=== PATIENT | male | born 1975 | race Caucasian/White ===

== ENCOUNTER 2016-12-14 20:00 | Emergency (ER) | payer BC ==
[~2016-12-14 20:00] MED LIST: ACET500CAP PO; CARDCD120 PO; ELIQUIS 5 MG TAB5 MG PO; FLECAINIDE150 MG PO; STEROID INJECTION IM; TRIAMCINOLON0.12 TOP
== END 2016-12-14 22:14 | disposition home or self-care (01) ==
LOC: ER 20:00
PROC: 0HQGXZZ Repair Left Hand Skin, External Approach (ICD-10-PCS; principal; 2016-12-14)
DX: S61.211A Laceration without foreign body of left index finger without damage to nail, initial encounter (principal); S61.213A Laceration without foreign body of left middle finger without damage to nail, initial encounter; Z91.038 Other insect allergy status; Z79.899 Other long term (current) drug therapy; Y28.9XXA Contact with unspecified sharp object, undetermined intent, initial encounter
CPT/HCPCS: 73130-LT; 99283

== ENCOUNTER → 2016-12-26 16:55 | Emergency (ER) | payer BC | END | disposition home or self-care (01) | LOC: ER 16:55 | DX: S61.412D Laceration without foreign body of left hand, subsequent encounter (principal); F17.200 Nicotine dependence, unspecified, uncomplicated; Z91.038 Other insect allergy status; Z91.048 Other nonmedicinal substance allergy status; Z79.899 Other long term (current) drug therapy; W29.3XXD Contact with powered garden and outdoor hand tools and machinery, subsequent encounter | CPT/HCPCS: 99282 ==